=== PATIENT | male | born 1950 | race Caucasian/White ===

== ENCOUNTER 2016-06-21 05:35 | Emergency (ER) | payer OTHER, MEDICARE ==
[~2016-06-21] VITALS: Ht 180.3 cm; Wt 90.7 kg
[2016-06-21 05:40] VITALS: BP 132/70
[2016-06-21] MEDS ORDERED: LISINOPRIL20 M1 PO (05:43)
[2016-06-21] MEDS ORDERED: AMLODIPINE BESY10 M1 PO (05:44)
[2016-06-21] MEDS ORDERED: FLUPHENAZINE HC10 M1 PO (05:44)
[2016-06-21] MEDS ORDERED: DOXAZOSIN MESYLA8 M1 PO (05:44)
[2016-06-21] MEDS ORDERED: IBUPROFEN600 M1 PO (05:50)
--- NOTE | 2016-06-21 05:50 | ED GENERAL ADULT ---
History of Present Illness General Chief Complaint: Skin Rash/ Abcess Stated Complaint: " I'VE GOT A CYST ON MY BUTT AND IT'S BLEEDING" Source: patient, old records Exam Limitations: no limitations Vital Signs & Intake/Output Vital Signs & Intake/Output Vital Signs Date Time Temp Pulse Resp B/P Pulse O2 O2 Flow FiO2 Ox Delivery Rate 06/21 0540 96.8 82 20 132/70 99 Room Air Allergies Coded Allergies: NO KNOWN ALLERGIES (02/09/12) Reconcile Medications Amlodipine Besylate 10 MG TABLET 10 MG PO DAILY HTN (Reported) Doxazosin Mesylate 8 MG TABLET 8 MG PO DAILY HTN (Reported) Fluphenazine HCl 10 MG TABLET 10 MG PO DAILY PSYCH (Reported) Ibuprofen 600 MG TABLET 1 TAB PO TID PRN PAIN with food Lisinopril 20 MG TABLET 20 MG PO DAILY HTN (Reported) Triage Note: PT PRESENTS TO TRIAGE C/O OF PAIN TO TAIL BONE THAT STARTED TWO DAYS AGO. PT STATES "I THINK I HAVE A CYST AND ITS BOTHERING ME." PT ALSO STATES THAT AREA STARTED BLEEDING THIS AM Triage Nurses Notes Reviewed? yes HPI: Patient presents with what he felt was a cyst on his rectum that he noticed 2 days ago. Tonight he noticed that when he wiped there was a little bit of blood on the toilet paper. There is been no pus drainage. The pain increases with walking. The pain is sharp in nature. There is no radiation of the pain. The pain is constant. He rates the pain as 7 out of 10. There are no fevers or chills. The pain started after he had itching down in that area so was scratching. The itching has subsequently resolved. Past History Travel History Traveled to [place] past 21 day No Medical History Any Pertinent Medical History? see below for history Psychiatric: schizophrenia History of MRSA: No History of VRE: No History of CDIFF: No Pneumonia Vaccine: 01/14/12 Influenza Vaccine: 03/19/13 Surgical History Surgical History: non-contributory Psychosocial History Who do you live with Patient/Self Services at Home Nursing What is your primary language Moh[place] Tobacco Use: Never used ETOH Use: denies use Illicit Drug Use: denies illicit drug use Family History Family History, If Any: Relation not specified for: FH: VT (myocardial infarction) Hx Contributory? No Review of Systems Review of Systems Constitutional: Reports: no symptoms. Respiratory: Reports: no symptoms. Cardiovascular: Reports: no symptoms. GI: Reports: no symptoms. Skin: Reports: see HPI. Immunologic/Allergic: Reports: no symptoms. Physical Exam Physical Exam General Appearance: well developed/nourished, alert, awake, anxious, mild distress Eyes: Bilateral: PERRL, EOMI. Respiratory: normal breath sounds, chest non-tender, no respiratory distress, lungs clear Cardiovascular: regular rate/rhythm, normal peripheral pulses Gastrointestinal: normal bowel sounds, soft, non-tender, no organomegaly Rectal: NO ABSCESS.SMALL LINEAR HEALING CUT NOTICED TO HIS LEFT PERIANAL REGION CONSISTENT WITH A SCRATCH FROM A FINGERNAIL. nO SIGNS OF INFECTION. Neurologic/Psych: no motor/sensory deficits, awake, alert, oriented x 3, normal gait, normal mood/affect Skin: intact, normal color, warm/dry Core Measures ACS in differential dx? No CVA/TIA Diagnosis: No Severe Sepsis Present: No Septic Shock Present: No Progress Differential Diagnoses I considered the following diagnoses in my evaluation of the patient: [Abscess versus laceration versus fissure] Plan of Care: Current Medications Sig/Salud Start time Last Medication Dose Stop Time Status Admin Ibuprofen 600 MG ONCE ONE 06/21 599 UNVr (Motrin) 06/21 600 Initial ED EKG: none Departure Departure Disposition: HOME OR SELF CARE Condition: Stable Clinical Impression Primary Impression: Perianal fissure Referrals: LEANNE ARREDONDO DO (PCP/Family) Additional Instructions: Take Motrin as needed for the pain. Return if symptoms worsen or for any concerns. Departure Forms: Customer Survey General Discharge Information Prescriptions: Current Visit Scripts Ibuprofen 1 TAB PO TID PRN PAIN #20 TAB with food Critical Care Note Critical Care Note Critical Care Time: non-applicable
== END 2016-06-21 05:55 ==
LOC: ERH 05:35
DX: K60.2 Anal fissure, unspecified (principal)

== ENCOUNTER → 2017-09-25 | Day surgery (SDC) | payer OTHER, MEDICARE ==
[~2017-09-25] VITALS: Ht 180.3 cm; Wt 92.5 kg
[~2017-09-25] MED LIST: AMLODIPINE BESY10 M1 PO; DOXAZOSIN MESYLA8 M1 PO; FLUPHENAZINE HC10 M1 PO; IBUPROFEN600 M1 PO; LISINOPRIL20 M1 PO; LITHIUM CARBON300 M4 PO; PRAVACHOL40 M1 PO
--- NOTE | 2017-09-25 12:16 | Operative Report ---
Operative/Inv Procedure Report Surgery Date: 09/25/17 Name of Procedure: Cataract extraction lens implantation left eye Pre-Operative Diagnosis: Age-related cataract left eye 20/150 vision Post-Operative Diagnosis: Same Estimated Blood Loss: none Surgeon/Floor Inspector: Austin GUERRA,Dru Morris Anesthesia: local monitored anesthesi Complications: None Operative/Procedure Note Note: The patient was brought to the operating room standard monitoring equipment was attached the patient was prepped and draped in the usual fashion for intraocular surgery. A lid speculum was placed to retract the lids. The case was begun by making 2 partial-thickness corneal relaxing incisions at 100. A temporal incision with a 2.4 mm keratome. The eye was stabilized with a Duran ring during this incision. 1 mL of non-preserved lidocaine was introduced into the anterior chamber to provide anesthesia. The anterior chamber was then filled and deepened with viscoelastic. A curvilinear capsulorrhexis was achieved using a 30-gauge needle and is a cystotome and capsulorrhexis was finished using a Utrata forceps. A second or paracentesis incision was made temporally with a 1 mm MVR blade. The lens was then hydrodissected with balanced salt solution and found to be rotatable. The lens was emulsified using phacoemulsification and a modified four-quadrant cracking technique. The residual cortical material was removed using automated irrigation and aspiration and as much of the anterior capsular rim was cleaned as well as possible. The posterior capsule was cleaned first with the automated machine on a low setting and then manually with a Tejinder squeegee. The capsular bag was deepened with viscoelastic. The lens a Technis 1 11.5 Diopter placed into the bag under direct visualization and rotated so that the haptics were at 12 and 6:00. Viscoelastic was then removed from the eye by flushing it out and then by automated irrigation and aspiration. The eye was pressurized to a normal tone. 1/10 of a cc of cefuroxime solution was introduced into the anterior chamber to provide antibiotic prophylaxis. The wounds were sealed by hydrating the stroma adjacent to them and the eye was left at a proper tone after the wounds were checked and found not to be leaking. The lid speculum was removed from the orbit. Antibiotic and steroid drops were placed on the eye and then the eye was shielded. Monitoring equipment was removed from the patient and the patient was removed from the operative suite to the holding area. The patient tolerated the procedure well and will be seen in the office tomorrow.
== END ==
LOC: STS 00:46
DX: H25.9 Unspecified age-related cataract (principal); I10 Essential (primary) hypertension; Z87.891 Personal history of nicotine dependence
CPT/HCPCS: J2250; V2632

== ENCOUNTER → 2017-10-08 | Day surgery (SDC) | payer OTHER, MEDICARE ==
[~2017-10-08] VITALS: Ht 180.3 cm; Wt 92.5 kg
--- NOTE | 2017-10-08 11:57 | Operative Report ---
Operative/Inv Procedure Report Surgery Date: 10/08/17 Name of Procedure: Cataract extraction lens implantation right eye Pre-Operative Diagnosis: Agr related cataract right eye 20/30 vision 20/70 glare vision Post-Operative Diagnosis: Same Estimated Blood Loss: none Surgeon/Jewelry Sales: Austin GUERRA,Dru Morris Anesthesia: local monitored anesthesi Complications: None Operative/Procedure Note Note: The patient was brought to the operating room standard monitoring equipment was attached the patient was prepped and draped in the usual fashion for intraocular surgery. A lid speculum was placed to retract the lids. The case was begun by making a temporal incision with a 2.4 mm keratome. The eye was stabilized with a Duran ring during this incision. 1 mL of non-preserved lidocaine was introduced into the anterior chamber to provide anesthesia. The anterior chamber was then filled and deepened with viscoelastic. A curvilinear capsulorrhexis was achieved using a 30-gauge needle and is a cystotome and capsulorrhexis was finished using a Utrata forceps. A second or paracentesis incision was made temporally with a 1 mm MVR blade. The lens was then hydrodissected with balanced salt solution and found to be rotatable. The lens was emulsified using phacoemulsification and a modified four-quadrant cracking technique. The residual cortical material was removed using automated irrigation and aspiration and as much of the anterior capsular rim was cleaned as well as possible. The posterior capsule was cleaned first with the automated machine on a low setting and then manually with a Tejinder squeegee. The capsular bag was deepened with viscoelastic. The lens a Technis 1 11.5 Diopter placed into the bag under direct visualization and rotated so that the haptics were at 12 and 6:00. Viscoelastic was then removed from the eye by flushing it out and then by automated irrigation and aspiration. The eye was pressurized to a normal tone. 1/10 of a cc of vancomycin solution was introduced into the anterior chamber to provide antibiotic prophylaxis. The wounds were sealed by hydrating the stroma adjacent to them and the eye was left at a proper tone after the wounds were checked and found not to be leaking. The lid speculum was removed from the orbit. Antibiotic and steroid drops were placed on the eye and then the eye was shielded. Monitoring equipment was removed from the patient and the patient was removed from the operative suite to the holding area. The patient tolerated the procedure well and will be seen in the office tomorrow.
== END ==
LOC: STS 01:09
DX: H25.9 Unspecified age-related cataract (principal); I10 Essential (primary) hypertension
CPT/HCPCS: J2250; V2632